=== PATIENT | male | born 2000 | race Caucasian/White ===

== ENCOUNTER 2018-12-22 01:44 | Emergency (ER) | payer BC ==
--- NOTE | 2018-12-22 01:48 | ERPHSYRPT ---
- History of Present Illness Time Seen by Provider: 12/22/18 01:47 Source: patient Exam Limitations: no limitations Physician History: 18 y/o left handed white male presents with tender swollen deformed right wrist. pt fell onto outstretched right hand while riding a skateboard 6 plus hours ago. no other injury of complaints. Occurred: this evening Method of Injury: fell (from skateboard) Severity of Pain-Max: moderate Severity of Pain-Current: moderate Extremities Pain Location: wrist: right Modifying Factors: Improves With: movement Allergies/Adverse Reactions: No Known Drug Allergies Allergy (Verified 12/22/18 01:49) Hx Influenza Vaccination/Date Given: No - Review of Systems Constitutional: No Symptoms Eyes: No Symptoms Ears, Nose, & Throat: No Symptoms Respiratory: No Symptoms Cardiac: No Symptoms Abdominal/Gastrointestinal: No Symptoms Genitourinary Symptoms: No Symptoms Musculoskeletal: Fall, Injury (right wrist), Joint Pain, Joint Swelling Skin: No Symptoms Neurological: No Symptoms Psychological: No Symptoms Endocrine: No Symptoms Hematologic/Lymphatic: No Symptoms Immunological/Allergic: No Symptoms All Other Systems: Reviewed and Negative - Past Medical History Pertinent Past Medical History: No Neurological History: No Pertinent History ENT History: No Pertinent History Cardiac History: No Pertinent History Respiratory History: No Pertinent History Endocrine Medical History: No Pertinent History Musculoskeletal History: No Pertinent History GI Medical History: No Pertinent History History: No Pertinent History Psycho-Social History: No Pertinent History Male Reproductive Disorders: No Pertinent History - Past Surgical History Past Surgical History: No Neuro Surgical History: No Pertinent History Cardiac: No Pertinent History Respiratory: No Pertinent History Gastrointestinal: No Pertinent History Genitourinary: No Pertinent History Musculoskeletal: No Pertinent History Male Surgical History: No Pertinent History - Social History Smoking Status: Never smoker Exposure to second hand smoke: No Drug Use: none Patient Lives Alone: No - Nursing Vital Signs Nursing Vital Signs: Initial Vital Signs Temperature 97.9 F 12/22/18 01:50 Pulse Rate 98 H 12/22/18 01:50 Respiratory Rate 18 12/22/18 01:50 Blood Pressure 151/98 12/22/18 01:50 O2 Sat by Pulse Oximetry 98 12/22/18 01:50 Pain Scale Pain Intensity 8 - Physical Exam General Appearance: no apparent distress, alert, anxiety Eyes, Ears, Nose, Throat Exam: normal ENT inspection, moist mucous membranes Neck Exam: normal inspection, non-tender, supple, full range of motion Cardiovascular/Respiratory Exam: chest non-tender Abdominal Exam: non-tender Back Exam: normal inspection, normal range of motion, No CVA tenderness, No vertebral tenderness Shoulder Exam: normal inspection, non-tender, no evidence of injury, normal ROM Elbow/Forearm Exam: normal inspection, non-tender, no evidence of injury, normal ROM Wrist Exam: bone tenderness, deformity, limited ROM, soft tissue tenderness, swelling Hand Exam: normal inspection, non-tender, no evidence of injury, normal ROM Neuro/Tendon Exam: normal sensation, normal tendon functions, responds to pain Mental Status Exam: alert, oriented x 3, cooperative Skin Exam: normal color, warm, dry SpO2 Interpretation: normal O2 Delivery: Room Air Ordered Tests: Active Orders 24 hr Category Date Time Status Splint STAT Care 12/22/18 03:32 Ordered WRIST (MIN 3 VIEWS) Stat Exams 12/22/18 01:55 Taken Medication Summary Discontinued Medications Generic Name Dose Route Start Last Admin Trade Name Jose Lq PRN Reason Stop Dose Admin Ibuprofen 400 mg 12/22/18 01:54 12/22/18 01:59 Motrin 400 Mg PO 12/22/18 01:55 400 mg STAT ONE Administration Ibuprofen Confirm 12/22/18 01:58 Motrin 400 Mg Administered 12/22/18 01:59 Dose 400 mg .ROUTE .STK-MED ONE Oxycodone/Acetaminophen 1 tab 12/22/18 01:54 12/22/18 01:59 Percocet Tablet 5/325mg PO 12/22/18 01:55 1 tab STAT STA Administration Oxycodone/Acetaminophen Confirm 12/22/18 01:58 Percocet Tablet 5/325mg Administered 12/22/18 01:59 Dose 1 tab .ROUTE .STK-MED ONE - Progress Progress: improved Progress Note: 12/22/18 03:33 xray-carpal bone fx triquetrum 12/22/18 03:36 post splint nv check intact right wrist/hand Counseled pt/family regarding: diagnosis, need for follow-up, rad results - Departure Departure Disposition: Home Clinical Impression: Triquetral fracture Condition: Stable Critical Care Time: No Referrals: CHERISE ROSE [ACTIVE STAFF] - Additional Instructions: keep in splint. ice pack 3 times daily for 2 days. follow up at [facility] for further management Prescriptions: Hydrocodone/APAP 5-325 Tab^^^ [Lima 5-325 Tablet^^^] 1 tab PO Q6HPRN PRN #10 tablet MDD 6 PRN Reason: Pain
[2018-12-22] MEDS ORDERED: PERCOCET TABLET 5/325MG PO STA (01:54)
[2018-12-22] MEDS ORDERED: MOTRIN 400 MG PO ONE (01:54)
[2018-12-22] MEDS ORDERED: MOTRIN 400 MG ONE (01:58)
[2018-12-22] MEDS ORDERED: PERCOCET TABLET 5/325MG ONE (01:58)
[2018-12-22 03:29] VITALS: BP 124/63
[2018-12-22 03:45] VITALS: PULSE 80; O2SAT 98
--- NOTE | 2018-12-23 05:32 | XRAY ---
Exam: 3 view right wrist series from 12/22/2018. Comparison: None. Indication: 18-year-old male with fall/injury. Patient was skateboarding and fell onto right side and right arm, complains of pain within right wrist area. Findings: AP, oblique, and lateral radiographs of the right wrist were obtained. There is a small avulsion fracture at the posterior margin of the carpus on the lateral radiograph. The avulsed fragment measures about 3 mm in diameter and appears to arise off the posterior aspect of the triquetrum. Moderate overlying soft tissue swelling is seen posteriorly. I see no other acute fracture or dislocation of the right wrist. The joint spaces appear unremarkable. Impression: 1. Acute chip fracture off the dorsal aspect of the triquetrum bone. The avulsed fragment is displaced above 4.5 mm posteriorly. Significant overlying soft tissue swelling is seen posterior to the right carpal region.
== END 2018-12-22 03:51 | disposition home or self-care (01) ==
LOC: ED 01:44
DX: S62.111A Displaced fracture of triquetrum [cuneiform] bone, right wrist, initial encounter for closed fracture (principal); M25.431 Effusion, right wrist; V00.131A Fall from skateboard, initial encounter; Y93.51 Activity, roller skating (inline) and skateboarding
CPT/HCPCS: 29126; 73110; 99284; A9270-GY